=== PATIENT | male | born 1955 | race Caucasian/White ===

== ENCOUNTER → 2023-07-02 10:17 | Outpatient (BNVA) | payer MEDICARE, SELFPAY | PROVIDERS: PCP Family Medicine; Visit Provider Family Medicine | DX: E11.9 Type 2 diabetes mellitus without complications (principal); Z12.5 Encounter for screening for malignant neoplasm of prostate; M15.9 Polyosteoarthritis, unspecified; I10 Essential (primary) hypertension; Z79.4 Long term (current) use of insulin | CPT/HCPCS: 80053; 80061; 82043; 83036; 85025; G0103 ==

== ENCOUNTER → 2023-12-31 09:04 | Outpatient (BNVA) | payer MEDICARE, SELFPAY | PROVIDERS: PCP Family Medicine; Visit Provider Family Medicine | DX: Z13.6 Encounter for screening for cardiovascular disorders (principal); Z11.59 Encounter for screening for other viral diseases; E11.9 Type 2 diabetes mellitus without complications; Z12.5 Encounter for screening for malignant neoplasm of prostate; Z79.4 Long term (current) use of insulin | CPT/HCPCS: 80053; 80061; 83036; 86803 ==

== ENCOUNTER → 2024-01-12 10:39 | Outpatient (BNVA) | payer MEDICARE, SELFPAY | PROVIDERS: PCP Family Medicine; Visit Provider Surgery | DX: K63.5 Polyp of colon (principal) | CPT/HCPCS: 99203 ==

== ENCOUNTER → 2024-01-26 09:06 | Outpatient (BNVA) | payer MEDICARE, SELFPAY | PROVIDERS: PCP Family Medicine; Visit Provider Family Medicine | DX: E87.5 Hyperkalemia (principal) | CPT/HCPCS: 80048 ==

== ENCOUNTER → 2024-04-04 08:30 | Outpatient (BNVA) | payer MEDICARE, SELFPAY | PROVIDERS: PCP Family Medicine; Visit Provider Family Medicine | DX: E11.9 Type 2 diabetes mellitus without complications (principal); Z79.4 Long term (current) use of insulin | CPT/HCPCS: 80053; 80061; 83036 ==

== ENCOUNTER 2024-05-12 09:21 | Day surgery (SDC) | payer MEDICARE, SELFPAY ==
--- NOTE | 2024-05-12 08:57 | W.PM.OPSFHP ---
Same Day Surgery H&P Indication for Procedure/HPI DATE OF PROCEDURE: May 12, 2024 CHIEF COMPLAINT/INDICATIONFOR SURGICAL PROCEDURE: need for screening colonoscopy PREOP DIAGNOSIS: need for screening colonoscopy PLANNED PROCEDURE: Operation Date: 05/12/24 10:45 Proposed Procedures p Colonoscopy 51339, G0105, K63.5(Not Applicable) - Guy Noonan MD Medications/Allergies* Home Medications Medication Instructions Recorded Confirmed Type aspirin 81 mg tablet,delayed 81 mg PO DAILY 04/02/23 05/11/24 History release (Adult Aspirin Regimen) cholecalciferol (vitamin D3) 50 50 mcg PO DAILY 04/02/23 05/11/24 History mcg (2,000 unit) capsule docusate sodium 100 mg capsule 100 mg PO DAILY 04/02/23 05/11/24 History (Colace) [id number]-li-dxhzd 300 mcg-K 60 1 tab PO DAILY 04/02/23 05/11/24 History mcg-lycop 600 mcg-lutein 300 mcg tablet (Men 50 Plus Multivitamin) diclofenac potassium 50 mg tablet 50 mg PO BID 05/11/24 05/11/24 History ezetimibe 10 mg tablet 10 mg PO DAILY 05/11/24 05/11/24 History glipizide 5 mg tablet 5 mg PO DAILY 05/11/24 05/11/24 History insulin degludec 100 unit/mL (3 50 unit SUBCUT QPM 05/11/24 05/11/24 History mL) subcutaneous pen (Tresiba FlexTouch U-100 insulin) Allergies/Adverse Reactions Allergy/AdvReac Type Severity Reaction Status Date / Time Exjyimp-DDV-YqH Reductase Allergy Mild ADR-Muscle Verified 05/11/24 08:58 Inhibitor Pain Pertinent History/Comorbid Conditions* Medical History (Updated 12/30/23 @ 08:44 by Xiao Delgado DO) Renal calculi x 5 Type 2 diabetes mellitus, with long-term current use of insulin Benign essential HTN Surgical History (Updated 04/02/23 @ 10:09 by Xiao Delgado DO) 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 History of lithotripsy History of hernia repair Abd, bilateral inguinal History of carpal tunnel release of both wrists Family History (Updated 04/02/23 @ 09:52 by Vero Castellanos LPN) Father Grandfather Grandmother, unknown Diabetes Grandfather Father Dementia Father Hypertension Mother Father Stroke Grandfather Social History Smoking and tobacco/nicotine status: never used tobacco/nicotine Alcohol intake: never Pertinent Exam Findings alert, oriented x 3, clear to auscultation bilaterally and regular rate & rhythm Recommendations Surgery/Procedure today Coding Level of Care Code Acute Code for Chg Miroslava
[2024-05-12 09:56] VITALS: BP 155/92; PULSE 70; RESP 16; TEMP 36.2; O2SAT 97; BMI 44.3
[2024-05-12] MEDS: sodium chloride 0.9% 1,000 ML 30 ML IV (10:02)
[2024-05-12 10:10] LABS: Glucose Point of Care 157 mg/dL (70-110)
--- NOTE | 2024-05-12 10:49 | ANES.PREANE2 ---
Pre-Anesthetic Assessment Height/Weight: Height 1.75 m Weight 136.078 kg Temp Pulse Resp BP Pulse Ox O2 Del Method 97.2 F L 70 16 155/92 97 Room Air 05/12/24 09:56 05/12/24 09:56 05/12/24 09:56 05/12/24 09:56 05/12/24 09:56 05/12/24 09:56 Preop Diagnosis: need for screening colonoscopy Operation Date: 05/12/24 10:45 Proposed Procedures p Colonoscopy 04277, G0105, K63.5(Not Applicable) - Guy Noonan MD Familial anesthetic complications: none Was Beta Rc taken within 24 hours: Yes Was Clonidine taken within 24 hours: N/A Last intake: Intake Last Liquid Date 05/11/24 Last Liquid Time 20:30 Last Solid Date 05/10/24 Last Solid Time 18:00 Social No alcohol and No tobacco Exam alert and oriented x 3 Airway Submandibular: within normal limits Cervical ROM: within normal limits Mallampati: Class II Dentition: full History/ROS No significant history except as noted Pulmonary None reported CV/HEM Hypertension None reported Hepatic None reported GI Gastroesophageal Reflux Disease (occasional not bad ) Metabolic Diabetes Mellitus and Morbid Ob[place] [facility] [place] None reported Neuropsych None reported Anesthetic Plan ASA status: 3 Anesthesia: Anesthesia Evaluation, General and MAC Risk of > 500 ml blood loss (7ml/kg in children): No Medications/Allergies Home Medications Medication Instructions Recorded Confirmed Last Taken Type aspirin 81 mg tablet,delayed 81 mg PO DAILY 04/02/23 05/12/24 05/11/24 History release (Adult Aspirin Regimen) cholecalciferol (vitamin D3) 50 50 mcg PO DAILY 04/02/23 05/12/24 05/11/24 History mcg (2,000 unit) capsule docusate sodium 100 mg capsule 100 mg PO DAILY 04/02/23 05/12/24 05/11/24 History (Colace) yoayaigs-aa-jztcc 300 mcg-K 60 1 tab PO DAILY 04/02/23 05/12/24 05/11/24 History mcg-lycop 600 mcg-lutein 300 mcg tablet (Men 50 Plus Multivitamin) Glucose test strips #1 ea 07/10/23 05/12/24 Unknown Rx diclofenac sodium 3 % topical gel 1 applic topical BID PRN hand pain 12/28/23 05/12/2424 Rx #100 grams lisinopril 20 mg tablet 20 mg PO DAILY #90 tabs 12/28/23 05/12/24 05/11/24 Rx Pen [place] #100 ea 04/08/24 05/12/24 Unknown Rx carvedilol 6.25 mg tablet 6.25 mg PO BID #180 tabs 04/08/24 05/12/24 05/12/24 Rx semaglutide 0.25 mg or 0.5 mg (2 0.25 mg (0.368 mL) SUBCUT .weekly 04/08/24 05/12/24 05/03/24 Rx mg/3 mL) subcutaneous pen injector #3 mL (Ozempic) diclofenac potassium 50 mg tablet 50 mg PO BID 05/11/24 05/12/24 05/11/24 History ezetimibe 10 mg tablet 10 mg PO DAILY 05/11/24 05/12/24 05/11/24 History glipizide 5 mg tablet 5 mg PO DAILY 05/11/24 05/12/24 05/11/24 History insulin degludec 100 unit/mL (3 50 unit SUBCUT QPM 05/11/24 05/12/24 05/11/24 History mL) subcutaneous pen (Tresiba FlexTouch U-100 insulin) Allergies Allergy/AdvReac Type Severity Reaction Status Date / Time Jebmolf-ZBP-FrX Reductase Allergy Mild ADR-Muscle Verified 05/11/24 08:58 Inhibitor Pain Latex, Natural Rubber Allergy ADR-Itching Verified 05/12/24 09:53 Current Medications Generic Name Dose Route Start Last Admin Trade Name Freq PRN Reason Stop Dose Admin Sodium Chloride 1,000 mls @ 30 mls/hr 05/12/24 09:45 05/12/24 10:02 Sodium Chloride 0.9% IV 05/13/24 09:44 30 mls/hr .Q24H RAJ Administration PFSH Anesthesia Medical History Renal calculi x 5 Type 2 diabetes mellitus, with long-term current use of insulin Benign essential HTN Surgical History Knee joint replacement status Right 2016 Left 2020 History of lithotripsy History of hernia repair Abd, bilateral inguinal History of carpal tunnel release of both wrists Family History Grandfather Diabetes Stroke Grandmother , unknown No problems noted. Mother Hypertension Father Diabetes Hypertension Dementia Social History Smoking and tobacco/nicotine status: never used tobacco/nicotine Alcohol intake: never Data Anesthesia Cardiac Studies: No Data to Display
[2024-05-12 11:18] VITALS: BP 117/69; PULSE 75; RESP 18; TEMP 36.2; O2SAT 92
[2024-05-12 11:30] VITALS: BP 132/76; PULSE 70; RESP 18; O2SAT 95
[2024-05-12 11:39] VITALS: BP 133/88; PULSE 63; RESP 18; O2SAT 95
--- NOTE | 2024-05-12 11:45 | ANE.PACU2 ---
Inpatient post-anesthesia follow up: Airway intact: Yes Vital signs: Temperature 97.2 F Pulse Rate 63 Respiratory Rate 18 Blood Pressure 133/88 Pulse Oximetry 95 Oxygen Delivery Me thod Room Air Oxygen Flow Rate Fraction of Inspir ed Oxygen Hydration adequate: Yes Nausea and vomiting: No Pain level: 1 Mental status: Baseline
== END 2024-05-12 11:46 | disposition home or self-care (01) ==
PROVIDERS: PCP Family Medicine; Visit Provider Surgery
PROC: 0DJD8ZZ Inspection of Lower Intestinal Tract, Via Natural or Artificial Opening Endoscopic (ICD-10-PCS; CPT 45378; principal; 2024-05-12 10:45)
DX: Z12.11 Encounter for screening for malignant neoplasm of colon (principal); E11.9 Type 2 diabetes mellitus without complications; Z79.4 Long term (current) use of insulin; I10 Essential (primary) hypertension; Z79.82 Long term (current) use of aspirin; K21.9 Gastro-esophageal reflux disease without esophagitis; E66.01 Morbid (severe) obesity due to excess calories; Z68.41 Body mass index [BMI] 40.0-44.9, adult
CPT/HCPCS: 36416; 82962; G0121; J2704; J7030

== ENCOUNTER → 2025-07-17 11:04 | Outpatient (BNVA) | payer MEDICARE, SELFPAY | PROVIDERS: PCP Family Medicine; Visit Provider Family Medicine | DX: Z12.5 Encounter for screening for malignant neoplasm of prostate (principal); E11.9 Type 2 diabetes mellitus without complications; R31.29 Other microscopic hematuria; Z79.4 Long term (current) use of insulin | CPT/HCPCS: 80053; 80061; 81003; 83036; 85025; G0103 ==

== ENCOUNTER → 2025-10-16 09:54 | Outpatient (BNVA) | payer MEDICARE, SELFPAY | PROVIDERS: PCP Family Medicine; Visit Provider Family Medicine | DX: E11.9 Type 2 diabetes mellitus without complications (principal); Z79.4 Long term (current) use of insulin | CPT/HCPCS: 80053; 83036 ==